=== PATIENT | female | born 1960 | race Caucasian/White ===

== ENCOUNTER 2018-03-16 10:10 | Day surgery (SDC) | payer OTHER ==
--- NOTE | 2018-03-12 10:08 | HP ---
PREOP HISTORY AND PHYSICAL: DATE OF ADMISSION: 03/16/18 CHIEF COMPLAINT: Right wrist pain. HISTORY OF PRESENT ILLNESS: Monika is a 57-year-old woman who has had right wrist pain for several months. She has CMC joint arthritis, but also de Quervain 's tenosynovitis. She has had cortisone injection and failed conservative treatment. She presents for de Quervain's release on the right. Symptoms at this point are most consistent with de Quervain's tenosynovitis. PAST MEDICAL HISTORY: Sleep apnea, obesity, gastroesophageal reflux, depression , hypothyroidism. PAST SURGICAL HISTORY: Significant for tubal ligation in 1996, bariatric surgery, and cholecystectomy. MEDICATIONS: 1. Tylenol PM. 2. Synthroid 125 mcg p.o. daily. 3. Omeprazole 20 mg p.o. daily. 4. MiraLax 3350 NF 17 g daily p.o. mixed with 8 ounces of water. 5. Citalopram hydrobromide 40 mg p.o. daily. ALLERGIES: To PENICILLIN. FAMILY HISTORY: Diabetes and cancer. SOCIAL HISTORY: She lives with her son. She works as an general administrator patient assistant. She denies current tobacco use, but has smoked in the past. She denies alcohol use and illicit drug use. PHYSICAL EXAMINATION GENERAL: She is a 57-year-old woman, who appears her stated age. VITAL SIGNS: Her height is 64 inches, weight 241 pounds, pulse 68, blood pressure 132/82, temperature 97.7. HEENT: Unremarkable. She has good range of motion of her neck without pain. No masses are palpated. Her eye movements are concentric. LUNGS: Clear to auscultation. Good inspiratory effort. No wheezing. CARDIAC: Regular rate and rhythm without murmur. PERIPHERAL VASCULAR: She has palpable pulses and no peripheral edema. Neurologically, she is alert and oriented without focal deficits. EXTREMITIES: She has positive Yonis's test on the right wrist, tenderness at the radial styloid. Good range of motion of the fingers. She can make a fist. NEUROLOGIC: Her neurovascular function is intact. SKIN: Intact. IMPRESSION: Right de Quervain's tenosynovitis. PLAN: Plan is for a right de Quervain's release. Surgical procedure, risks, and benefits were explained to the patient. She has agreed to proceed and I will see her back in followup for recheck approximately 10 days postop. [id number]/[facility] #: [id number] DANAY
[~2018-03-16 10:10] MED LIST: Lidocaine 1% INJ* 10 MG/ML 30 ML SDV ONE
[2018-03-16] MEDS ORDERED: fentaNYL* 50 MCG/ML 2 ML VIAL (100 MCG VIAL) ONE (10:32)
[2018-03-16] MEDS ORDERED: Midazolam* 1 MG/ML 5 ML VIAL (5 MG) ONE (10:32)
[2018-03-16] MEDS ORDERED: Famotidine IV* 10 MG/ML 2 ML (20 mg) ONE (11:01)
[2018-03-16] MEDS ORDERED: Ondansetron INJ* 2 MG/ML VIAL ONE (11:35)
[2018-03-16] MEDS ORDERED: Ketorolac INJ* 30 MG/ML 1 ML VIAL ONE (11:35)
[2018-03-16] MEDS ORDERED: Lidocaine 2% PF * 5 ML VIAL ONE (11:35)
[2018-03-16] MEDS ORDERED: Propofol* 10 MG/ML 20 ML BTL IV PUSH ONE (11:35)
[2018-03-16] MEDS ORDERED: Naloxone* 0.4 MG/ML 1 ML VIAL IV PRN (11:48)
[2018-03-16] MEDS ORDERED: Acetaminophen TAB* 325 MG PO PRN (11:48)
[2018-03-16 12:21] VITALS: BP 100/60
--- NOTE | 2018-03-17 02:25 | OP ---
ADDENDUM NOW INCLUDED ON THIS REPORT DATE OF OPERATION: 03/16/18 [facility] DATE OF : 62 SURGEON: Genesis Dalton MD [employer] TRUCK DRIVER: HERMINIO Cardenas ANESTHESIA: Local, MAC. PRE-OP DIAGNOSIS: Right de Quervain's tenosynovitis. POST-OP DIAGNOSIS: Right de Quervain's tenosynovitis. OPERATIVE PROCEDURE: Right de Quervain's release. ESTIMATED BLOOD LOSS: Zero. TOURNIQUET TIME: Approximately 10 minutes. INDICATIONS: Monika is a 57-year-old female who has pain in the radial aspect of her right wrist . She has a past history that is significant for evidence of de Quervain's tenosynovitis. She has failed conservative treatments and presents for de Quervain's release on the right. DESCRIPTION OF PROCEDURE: The patient was brought to the operating room, was given a sedation anesthetic and a local infiltration of 10 cc of 1% plain lidocaine near the right radial styloid. The skin of her right upper extremity was prepped and draped in the usual sterile fashion. The hand and forearm were exsanguinated and the tourniquet elevate to 250 mmHg. A longitudinal incision was made centered at the radial styloid. We dissected bluntly through the subcutaneous tissue down to the first dorsal compartment. Branches of the radial sensory were retracted by the rn medical surgical, Codie Ochoa. The first dorsal compartment was incised longitudinally, completely releasing the APL and EBP tendons in separate sheaths. The wound was irrigated and the skin edges reapproximated with 4-0 nylon suture. The wound was dressed with Xeroform , 4 x 4, Webril, and an Kike wrap. The patient tolerated the procedure well and was brought to the recovery room in good condition. ADDENDUM: DATE OF OPERATION: 03/16/18 There is one blank in the note, it should read: She has a past history that is significant for right wrist pain and she has evidence de Quervain's tenosynovitis. [id number]/[facility] #: [id number]- [id number]/[facility] #: [id number] DANAY
--- NOTE | 2018-03-20 16:59 | OP ---
CC: Dr. Dalton OPERATIVE REPORT: ADDENDUM: DATE OF OPERATION: 03/16/18 There is one blank in the note, it should read: She has a past history that is significant for right wrist pain and she has evidence de Quervain's tenosynovitis. [id number]/[facility] #: [id number] MTDD
== END 2018-03-16 12:03 | disposition home or self-care (01) ==
LOC: OREAST 10:10
PROVIDERS: ATTEND Orthopaedic Surgery
DX: M65.4 Radial styloid tenosynovitis [de Quervain] (principal); Z87.891 Personal history of nicotine dependence; G47.33 Obstructive sleep apnea (adult) (pediatric); K21.9 Gastro-esophageal reflux disease without esophagitis; F41.8 Other specified anxiety disorders; E03.9 Hypothyroidism, unspecified; M19.90 Unspecified osteoarthritis, unspecified site; E66.9 Obesity, unspecified
CPT/HCPCS: J1885; J2250; J2405; J2704; J3010